=== PATIENT | female | born 1965 | race Hispanic/Latino ===

== ENCOUNTER 2017-08-15 08:23 | Outpatient (CLI) | payer OTHER ==
--- NOTE | 2017-08-18 12:20 | MMO ---
BILATERAL SCREENING MAMMOGRAM: Date: 08/15/17 HISTORY: Screening. COMPARISON: Mammograms from 2014 and 2013. TECHNIQUE: Bilateral screening CC and MLO mammograms. This patient's mammogram was interpreted with the assistance of computer-aided detection. FINDINGS: There are benign-appearing calcifications in both breasts. Scar marker is noted over the right breast . IMPRESSION: BIRADS 2: Benign Finding(s) Continued annual mammographic screening is recommended. POS: [facility]
== END 2017-08-15 08:24 | disposition home or self-care (01) ==
LOC: SCSMAMMO 08:23
PROVIDERS: ATTEND Family Medicine
DX: Z12.31 Encounter for screening mammogram for malignant neoplasm of breast (principal)
CPT/HCPCS: 77067

== ENCOUNTER 2017-12-17 10:19 | Outpatient (CLI) | payer OTHER | END 2017-12-17 10:20 | disposition home or self-care (01) | LOC: BICMRI 10:19 | PROVIDERS: ATTEND Family Medicine | DX: M25.562 Pain in left knee (principal); S83.242A Other tear of medial meniscus, current injury, left knee, initial encounter ==